=== PATIENT | female | born 1955 | race Caucasian/White ===

== ENCOUNTER → 2016-10-10 | Outpatient (CLI) | payer OTHER | END | disposition home or self-care (01) | LOC: CFH 08:51 | PROVIDERS: ATTEND Family Medicine | DX: Z12.31 Encounter for screening mammogram for malignant neoplasm of breast (principal) | CPT/HCPCS: G0202 ==

== ENCOUNTER → 2016-10-23 | Outpatient (CLI) | payer OTHER | END | disposition home or self-care (01) | LOC: CFH 13:26 | PROVIDERS: ATTEND Physician Assistant | DX: M25.552 Pain in left hip (principal); M54.42 Lumbago with sciatica, left side | CPT/HCPCS: 72100; 73523 ==

== ENCOUNTER → 2018-03-04 | Outpatient (CLI) | payer BC ==
[~2018-03-04] MED LIST: GEMF600T4 PO; GLIP5TAB10 PO; INSU100V13 INJ; METF500T17 PO
[2018-03-04 16:24] LABS: ALBUMIN 4.1 g/dL (3.4-5.0); ANION GAP 7 mmol/L (5-15); CALCIUM 9.1 mg/dL (8.5-10.1); CHLORIDE 105 mmol/L (98-107)
[2018-03-04 16:27] LABS: ALANINE AMINOTRANSFERASE 40 U/L (12-78); ALKALINE PHOSPHATASE 158 U/L (45-117); BILIRUBIN,TOTAL 0.3 mg/dL (0.2-1.0); CREATININE 0.76 mg/dL (0.55-1.02); TOTAL PROTEIN 8.4 g/dL (6.4-8.2)
== END | disposition home or self-care (01) ==
LOC: STAR 15:30
PROVIDERS: ATTEND Orthopaedic Surgery
DX: Z01.818 Encounter for other preprocedural examination (principal); S83.242S Other tear of medial meniscus, current injury, left knee, sequela; X58.XXXS Exposure to other specified factors, sequela
CPT/HCPCS: 36415; 80053; 93005

== ENCOUNTER 2018-03-12 11:07 | Day surgery (SDC) | payer BC ==
[~2018-03-12] VITALS: Ht 157.5 cm; Wt 80.0 kg
[~2018-03-12 11:07] MED LIST changes: +CEFAZOLIN 1,000 MG ONE; +DEXAMETHASONE 4 MG/ML, 1ML ONE; +FENTANYL PF 250 MCG/5ML ONE; +MIDAZOLAM 1 MG/ML, 2ML ONE; +ONDANSETRON 2MG/ML, 2ML ONE; +PROPOFOL 10 MG/ML, 20ML ONE; +WATER-INJECTION,STERILE 10 ML IV ONE
[2018-03-12] MEDS ORDERED: LACTATED RINGERS 1,000 ML IV SCH (11:21)
[2018-03-12 11:24] VITALS: BP 146/85
[2018-03-12] MEDS ORDERED: LIDOCAINE 1%-EPI 1:100K, 30ML ONE (11:30)
[2018-03-12] MEDS ORDERED: BUPIVACAINE/PF-EPI 0.5% 1:200K ONE (11:30)
[2018-03-12] MEDS ORDERED: MORPHINE SULFATE 4 MG/ML, 1ML IVPush PRN (12:00)
[2018-03-12] MEDS ORDERED: PROMETHAZINE 25 MG SUPP PR PRN (12:00)
[2018-03-12] MEDS ORDERED: PROMETHAZINE 25 MG/ML, 1ML IV PRN (12:00)
[2018-03-12] MEDS ORDERED: PROMETHAZINE 25 MG/ML, 1ML IM PRN ×2 (12:00)
[2018-03-12] MEDS ORDERED: HYDROmorphone 1 MG/ML, 1ML IV PRN (12:00)
[2018-03-12] MEDS ORDERED: PROCHLORPERAZINE 5 MG/ML, 2ML IV PRN ×3 (12:00)
[2018-03-12] MEDS ORDERED: DIPHENHYDRAMINE 50 MG/ML, 1ML IVPush PRN (12:00)
[2018-03-12] MEDS ORDERED: OXYcodone 5 MG/5 ML ORAL.SOL UDC PO PRN (12:00)
[2018-03-12] MEDS ORDERED: MEPERIDINE/PF 25MG/0.5ML IVPush PRN (12:00)
[2018-03-12] MEDS ORDERED: PROMETHAZINE 12.5 MG SUPP PR PRN (12:00)
[2018-03-12] MEDS ORDERED: ONDANSETRON ODT 8 MG PO PRN (12:00)
[2018-03-12] MEDS ORDERED: hydrALAzine 20 MG/ML, 1ML IV PRN (12:00)
[2018-03-12] MEDS ORDERED: ONDANSETRON 2MG/ML, 2ML IV PRN (12:00)
[2018-03-12] MEDS ORDERED: LABETALOL 5MG/ML, 20ML IV PRN (12:00)
[2018-03-12] MEDS ORDERED: OXYcodone 5 MG/5 ML ORAL.SOL UDC ONE (13:27)
[2018-03-12] MEDS ORDERED: FENTANYL PF 100 MCG/2ML ONE (13:37)
[2018-03-12] MEDS: FENTANYL PF 100 MCG/2ML IV PRN ×2 (13:39→13:50)
[2018-03-12] MEDS ORDERED: HYDROcodone/APAP 5/325 TABLET ONE (16:42)
[2018-03-12] MEDS ORDERED: HYDROcodone/APAP 5/325 TABLET PO PRN (17:00)
[2018-03-12] MEDS ORDERED: GEMFIBROZIL PO SCH (21:00)
[2018-03-12] MEDS ORDERED: GLIPIZIDE PO SCH (21:00)
[2018-03-13] MEDS ORDERED: INSULIN DETEMIR INJ SCH (09:00)
== END 2018-03-12 18:00 | disposition home or self-care (01) ==
LOC: OUT 11:07
PROVIDERS: ATTEND Orthopaedic Surgery
DX: M94.262 Chondromalacia, left knee (principal); M67.52 Plica syndrome, left knee; M65.862 Other synovitis and tenosynovitis, left lower leg; E11.9 Type 2 diabetes mellitus without complications; X58.XXXA Exposure to other specified factors, initial encounter; Y93.89 Activity, other specified; Y92.89 Other specified places as the place of occurrence of the external cause; Y99.8 Other external cause status; Z87.39 Personal history of other diseases of the musculoskeletal system and connective tissue; Z98.890 Other specified postprocedural states; Z79.899 Other long term (current) drug therapy
CPT/HCPCS: 29876; 82962; J0690; J2250; J2405; J2704; J3010; J3490; J7120; J1100